=== PATIENT | male | born 1980 | race Caucasian/White ===

== ENCOUNTER 2018-10-03 23:04 | Emergency (ER) | payer OTHER ==
[~2018-10-03] VITALS: Ht 182.9 cm; Wt 95.5 kg
[2018-10-03 23:25] LABS: HEMATOCRIT 50.7 % (42.0-52.0); HEMOGLOBIN 17.9 g/dl (13.5-17.5); MEAN CORPUSCULAR HEMOGLOBIN 31.7 pg (27.0-33.0); MEAN CORPUSCULAR HGB CONC 35.3 g/dl (32.0-36.5); MEAN CORPUSCULAR VOLUME 89.7 fl (80.0-96.0); PLATELET COUNT, AUTOMATED 199 10^3/uL (150-450); RED BLOOD COUNT 5.65 10^6/uL (4.30-6.10)
[2018-10-03] MEDS ORDERED: diphenhydrAMINE INJ 50MG/ML VIAL (J1200) IM ONE (23:45)
[2018-10-03] MEDS ORDERED: HALOPERIDOL 5 MG/ML VIAL (J1630) IM ONE (23:45)
[2018-10-04 00:01] LABS: ALBUMIN 4.9 GM/DL (3.2-5.2); ALT/SGPT 52 U/L (12-78); BILIRUBIN,DIRECT 0.2 MG/DL (0.0-0.2); BILIRUBIN,TOTAL 0.6 MG/DL (0.2-1.0); BLOOD UREA NITROGEN 11 MG/DL (7-18); CALCIUM LEVEL 9.1 MG/DL (8.5-10.1); CARBON DIOXIDE LEVEL 31 MEQ/L (21-32); CHLORIDE LEVEL 105 MEQ/L (98-107); CREATININE FOR GFR 1.06 MG/DL (0.70-1.30); ETHYL ALCOHOL (ETHANOL) 0.296 % (0.000-0.010); GLOMERULAR FILTRATION RATE > 60.0 (>60); GLUCOSE, FASTING 105 MG/DL (70-100); POTASSIUM SERUM 4.2 MEQ/L (3.5-5.1); SALICYLATE LEVEL < 1.7 MG/DL (5.0-30.0); SODIUM LEVEL 143 MEQ/L (136-145); TOTAL PROTEIN 8.6 GM/DL (6.4-8.2)
[2018-10-04 00:03] LABS: ACETAMINOPHEN LEVEL < 2.0 UG/ML (10.0-30.0)
[2018-10-04 02:42] LABS: AMPHETAMINES LEVEL URINE NEGATIVE (NEGATIVE); BARBITURATES URINE NEGATIVE (NEGATIVE); BENZODIAZEPINES URINE NEGATIVE (NEGATIVE); CANNABINOIDS URINE NEGATIVE (NEGATIVE); COCAINE METABOLITE URINE NEGATIVE (NEGATIVE); METHADONE URINE NEGATIVE (NEGATIVE); OPIATES URINE NEGATIVE (NEGATIVE); PHENCYCLIDINE URINE NEGATIVE (NEGATIVE)
[2018-10-05 08:17] VITALS: BP 138/85
--- NOTE | 2018-10-05 22:01 | ECGEPIP ---
Stationary ECG Study [facility] - ED Test Date: 2018-10-04 Pat Name: LEONID BARRETT Department: Room: - Gender: [employer]: gt : 1980 Requested By: Britton Cannon Order Number: [id number] Reading MD: Britton Soler Measurements Intervals [place] Rate: 66 P: -4 WA: 152 QRS: 53 QRSD: 94 T: 0 QT: 402 QTc: 421 Interpretive Statements SINUS RHYTHM NONSPECIFIC T-WAVE ABNORMALITY NO PRIORS FOR COMPARISON Electronically Signed On 10-05-2018 22:01:52 EDT by Britton Soler
== END 2018-10-05 08:20 ==
LOC: M ED 23:04
DX: Z04.6 Encounter for general psychiatric examination, requested by authority (principal); F98.9 Unspecified behavioral and emotional disorders with onset usually occurring in childhood and adolescence; F10.929 Alcohol use, unspecified with intoxication, unspecified; R45.851 Suicidal ideations
CPT/HCPCS: 36415; 80048; 80076; 80307; 84443; 85027; 93005; 96372; 99285; G0480; J1200; J1630